=== PATIENT | female | born 1980 | race Two or more races ===

== ENCOUNTER 2021-02-13 21:58 | Emergency (ER) | payer BC, OTHER ==
[~2021-02-13] VITALS: Ht 160 cm; Wt 100.0 kg
[2021-02-13] MEDS ORDERED: IBUPROFEN 600 MG TABLET PO ONE (23:00)
[2021-02-13] MEDS ORDERED: ACETAMINOPHEN 500 MG TABLET PO ONE (23:00)
--- NOTE | 2021-02-13 23:13 | NUR ---
PT C/O OF LEFT FOOT 2ND DIGIT PAIN. STATES SHE FELL OF STAIRS AND BENT TOE BACKWARDS. DENIES HEAD INJURY AND LOC. ATTACHED TO MONITORS. VSS. NADN. BED IN LOW POSITION, RAILS ENGAGED. CALL LIGHT ON LAP. TM
[2021-02-13] MEDS ORDERED: ACETAMINOPHEN 500 MG TABLET ONE (23:24)
[2021-02-13] MEDS ORDERED: IBUPROFEN 600 MG TABLET ONE (23:24)
[2021-02-14 00:01] VITALS: BP 113/76
== END 2021-02-14 00:13 | disposition home or self-care (01) ==
LOC: ED 23:45
DX: S93.115A Dislocation of interphalangeal joint of left lesser toe(s), initial encounter (principal); Z87.891 Personal history of nicotine dependence; W10.8XXA Fall (on) (from) other stairs and steps, initial encounter; Y93.89 Activity, other specified; Y92.009 Unspecified place in unspecified non-institutional (private) residence as the place of occurrence of the external cause; Y99.8 Other external cause status
CPT/HCPCS: 28660; 99284